=== PATIENT | male | born 1985 | race Caucasian/White ===

== ENCOUNTER 2022-03-30 04:16 | Emergency (ER) | payer BC ==
[~2022-03-30] VITALS: Ht 177.8 cm; Wt 90.6 kg
[~2022-03-30 04:16] MED LIST changes: -HOLTER MONITOR XX; -KEPP1TAB2 PO
[2022-03-30] MEDS ORDERED: NS 1,000 ML IV ONE (04:25)
[2022-03-30 04:43] LABS: BASO # 0.1 10^3/uL (0.0-0.2); BASO % 0.7 % (0.0-1.0); EOS # 0.1 10^3/uL (0.0-0.5); EOS % 1.7 % (0.0-3.0); HEMATOCRIT 45.6 % (42.0-52.0); HEMOGLOBIN 14.9 g/dl (13.5-17.5); LYMPH # 1.5 10^3/uL (1.5-5.0); LYMPH % 17.9 % (24.0-44.0); MEAN CORPUSCULAR HEMOGLOBIN 28.6 pg (27.0-33.0); MEAN CORPUSCULAR HGB CONC 32.7 g/dl (32.0-36.5); MEAN CORPUSCULAR VOLUME 87.5 fl (80.0-96.0); MONO # 0.5 10^3/uL (0.0-0.8); MONO % 5.5 % (2.0-8.0); NEUTROPHILS % 73.5 % (36.0-66.0); PLATELET COUNT, AUTOMATED 258 10^3/uL (150-450); RED BLOOD COUNT 5.21 10^6/uL (4.30-6.10); WHITE BLOOD COUNT 8.1 10^3/uL (4.0-10.0)
[2022-03-30 06:01] LABS: ALBUMIN 3.9 GM/DL (3.2-5.2); ALT/SGPT 30 U/L (12-78); BILIRUBIN,TOTAL 0.3 MG/DL (0.2-1.0); BLOOD UREA NITROGEN 17 MG/DL (7-18); CALCIUM LEVEL 9.3 MG/DL (8.5-10.1); CARBON DIOXIDE LEVEL 25 MEQ/L (21-32); CHLORIDE LEVEL 105 MEQ/L (98-107); CREATININE FOR GFR 1.04 MG/DL (0.70-1.30); GLOMERULAR FILTRATION RATE > 60.0 (>60); GLUCOSE, FASTING 164 MG/DL (70-100); MAGNESIUM LEVEL 2.2 MG/DL (1.8-2.4); POTASSIUM SERUM 4.1 MEQ/L (3.5-5.1); SODIUM LEVEL 138 MEQ/L (136-145); TOTAL PROTEIN 7.5 GM/DL (6.4-8.2)
[2022-03-30] MEDS ORDERED: levETIRAcetam INJection 1,500 MG in D5W 100 ML IV ONE (07:00)
[2022-03-30] MEDS ORDERED: KEPP1TAB2 PO (07:03)
[2022-03-30 07:15] VITALS: BP 141/83
[2022-03-30] MEDS ORDERED: HOLTER MONITOR XX (07:20)
== END 2022-03-30 07:45 | disposition home or self-care (01) ==
LOC: EDBD 04:16 → M ED 04:16
DX: R56.9 Unspecified convulsions (principal); R91.8 Other nonspecific abnormal finding of lung field; Z88.5 Allergy status to narcotic agent
CPT/HCPCS: 70450; 71045; 80053; 82550; 83735; 84443; 85025; 87486; 87581; 87633; 87798; 93005; 96361; 96365; 99284; J1953

== ENCOUNTER → 2022-03-30 | Outpatient (CLI) | payer BC ==
[~2022-03-30] MED LIST: HOLTER MONITOR XX; KEPP1TAB2 PO; No Historical Meds
== END ==
LOC: M EKG 08:05
PROVIDERS: ATTEND Emergency Medicine
DX: R00.2 Palpitations (principal)

== ENCOUNTER → 2022-04-06 | Outpatient (REF) | payer BC ==
[~2022-04-06] MED LIST changes: +HOLTER MONITOR XX; +KEPP1TAB2 PO
[2022-04-06 16:38] LABS: APPEARANCE, URINE MANUAL CLEAR (CLEAR); BILIRUBIN, URINE MANUAL NEGATIVE (NEGATIVE); BLOOD URINE MANUAL NEGATIVE (NEGATIVE); COLOR, URINE MANUAL YELLOW (YELLOW); GLUCOSE, URINE (UA) MANUAL NEGATIVE (NEGATIVE); KETONE, URINE MANUAL NEGATIVE (NEGATIVE); LEUKOCYTE ESTERASE, URINE MAN NEGATIVE (NEGATIVE); NITRITE, URINE MANUAL NEGATIVE (NEGATIVE); PROTEIN, URINE MANUAL NEGATIVE (NEGATIVE); UROBILINOGEN, URINE MANUAL NORMAL (NORMAL)
[2022-04-06 19:03] LABS: HEMOGLOBIN A1c 5.5 % (4.0-6.0)
[2022-04-06 19:47] LABS: ALBUMIN 4.5 G/DL (3.2-5.2); ALT/SGPT 12 U/L (7.0-40); BILIRUBIN,TOTAL 0.4 MG/DL (0.3-1.2); BLOOD UREA NITROGEN 18 MG/DL (9-23); CALCIUM LEVEL 9.5 MG/DL (8.5-10.1); CARBON DIOXIDE LEVEL 28 MMOL/L (20-31); CHLORIDE LEVEL 103 MMOL/L (98-107); CHOLESTEROL LEVEL 244 MG/DL (<200); CHOLESTEROL RISK RATIO 5.72 (<5); CREATININE FOR GFR 0.98 MG/DL (0.70-1.30); GLOMERULAR FILTRATION RATE > 60.0 (>60); GLUCOSE, FASTING 82 MG/DL (60-100); HDL CHOLESTEROL 42.6 MG/DL (>40); LDL CHOLESTEROL 170.2 MG/DL (<100); NON-HDL-C 201 MG/DL; POTASSIUM SERUM 4.8 MMOL/L (3.5-5.1); SODIUM LEVEL 140 MMOL/L (136-145); TOTAL PROTEIN 7.3 G/DL; TRIGLYCERIDES LEVEL 156 MG/DL (<150)
== END ==
LOC: M LAB REF 11:46
PROVIDERS: ATTEND Nurse Practitioner Family
DX: Z00.00 Encounter for general adult medical examination without abnormal findings (principal)

== ENCOUNTER → 2022-06-01 | Outpatient (CLI) | payer BC | LOC: M RAD 16:05 | PROVIDERS: ATTEND Internal Medicine Pulmonary Disease | DX: R91.8 Other nonspecific abnormal finding of lung field (principal) ==

== ENCOUNTER → 2022-09-01 | Outpatient (REF) | payer BC ==
[2022-09-01 17:53] LABS: ALBUMIN 3.9 G/DL (3.2-5.2); ALKALINE PHOSPHATASE 64 U/L (46-116); ALT/SGPT < 9 U/L (7.0-40); AST/SGOT 12 U/L (<34); BILIRUBIN,TOTAL 0.3 MG/DL (0.3-1.2); BLOOD UREA NITROGEN 19 MG/DL (9-23); CARBON DIOXIDE LEVEL 29 MMOL/L (20-31); CHLORIDE LEVEL 104 MMOL/L (98-107); CHOLESTEROL LEVEL 228 MG/DL (<200); CHOLESTEROL RISK RATIO 5.27 (<5); CREATININE FOR GFR 1.01 MG/DL (0.70-1.30); GLOMERULAR FILTRATION RATE > 60.0 (>60); GLUCOSE, FASTING 83 MG/DL (60-100); HDL CHOLESTEROL 43.2 MG/DL (>40); LDL CHOLESTEROL 135.6 MG/DL (<100); MAGNESIUM LEVEL 1.7 MG/DL (1.8-2.4); NON-HDL-C 184.8 MG/DL; POTASSIUM SERUM 4.2 MMOL/L (3.5-5.1); SODIUM LEVEL 139 MMOL/L (136-145); THYROID STIMULATING HORMONE 1.833 uIU/ML (0.55-4.78); TOTAL PROTEIN 6.7 G/DL (5.7-8.2); TRIGLYCERIDES LEVEL 246 MG/DL (<150)
== END ==
LOC: M LAB REF 16:18
PROVIDERS: ATTEND Nurse Practitioner Family
DX: R56.9 Unspecified convulsions (principal); R00.1 Bradycardia, unspecified; E78.2 Mixed hyperlipidemia

== ENCOUNTER → 2022-09-19 | Outpatient (REF) | LOC: M LABCAHC 10:17 | DX: Z79.899 Other long term (current) drug therapy (principal) ==

== ENCOUNTER 2022-11-12 13:44 | Emergency (ER) | payer BC ==
[~2022-11-12] VITALS: Ht 175.3 cm; Wt 88.1 kg
[2022-11-12] MEDS ORDERED: DEPA500T2 PO (14:05)
[2022-11-12 14:42] LABS: BASO # 0.1 10^3/uL (0.0-0.2); BASO % 0.6 % (0.0-1.0); EOS % 0.2 % (0.0-3.0); HEMATOCRIT 43.1 % (42.0-52.0); HEMOGLOBIN 14.2 g/dl (13.5-17.5); LYMPH # 1.5 10^3/uL (1.5-5.0); LYMPH % 18.9 % (24.0-44.0); MEAN CORPUSCULAR HGB CONC 32.9 g/dl (32.0-36.5); MEAN CORPUSCULAR VOLUME 88.1 fl (80.0-96.0); MONO # 0.6 10^3/uL (0.0-0.8); MONO % 6.9 % (2.0-8.0); NEUTROPHILS # 5.9 10^3/uL (1.5-8.5); PLATELET COUNT, AUTOMATED 247 10^3/uL (150-450); RED BLOOD COUNT 4.89 10^6/uL (4.30-6.10); WHITE BLOOD COUNT 8.1 10^3/uL (4.0-10.0)
[2022-11-12 15:11] LABS: ETHYL ALCOHOL (ETHANOL) < 0.003 % (0.000-0.010); VALPROIC ACID (DEPAKOTE) 71.3 UG/ML (50.0-100.0)
[2022-11-12] MEDS ORDERED: LORazepam 2 MG/ML 1ML VIAL IV STA (15:11)
[2022-11-12 15:13] LABS: ALBUMIN 4.5 G/DL (3.2-5.2); ALKALINE PHOSPHATASE 66 U/L (46-116); ALT/SGPT < 9 U/L (7.0-40); AST/SGOT 9 U/L (<34); BILIRUBIN,DIRECT 0.2 MG/DL (<0.4); BILIRUBIN,TOTAL 0.7 MG/DL (0.3-1.2); BLOOD UREA NITROGEN 19 MG/DL (9-23); CALCIUM LEVEL 10.2 MG/DL (8.5-10.1); CARBON DIOXIDE LEVEL 25 MMOL/L (20-31); CHLORIDE LEVEL 104 MMOL/L (98-107); CREATININE FOR GFR 0.95 MG/DL (0.70-1.30); GLOMERULAR FILTRATION RATE > 60.0 (>60); GLUCOSE, FASTING 99 MG/DL (60-100); MAGNESIUM LEVEL 1.8 MG/DL (1.8-2.4); PHOSPHORUS LEVEL 1.9 MG/DL (2.5-4.9); POTASSIUM SERUM 3.8 MMOL/L (3.5-5.1); SODIUM LEVEL 137 MMOL/L (136-145); TOTAL PROTEIN 7.4 G/DL (5.7-8.2)
[2022-11-12] MEDS ORDERED: VALPROATE SOD INJ 500 MG in D5W 50 ML IV ONE (15:15)
[2022-11-12] MEDS ORDERED: POTASSIUM PHOSPHATE INJ 20 MMOL in D5W 250 ML IV ONE (16:05)
[2022-11-12] MEDS ORDERED: KEPP1TAB PO (18:17)
[2022-11-12] MEDS ORDERED: ATIV2TAB PO (18:17)
[2022-11-12 18:33] LABS: AMPHETAMINES LEVEL URINE NEGATIVE (NEGATIVE); BARBITURATES URINE NEGATIVE (NEGATIVE); BENZODIAZEPINES URINE NEGATIVE (NEGATIVE); COCAINE METABOLITE URINE NEGATIVE (NEGATIVE)
[2022-11-12 18:34] LABS: METHADONE URINE NEGATIVE (NEGATIVE); OPIATES URINE NEGATIVE (NEGATIVE); PHENCYCLIDINE URINE NEGATIVE (NEGATIVE)
[2022-11-12 18:37] LABS: CANNABINOIDS URINE POSITIVE (NEGATIVE)
[2022-11-12 20:00] VITALS: TEMP 97.5
[2022-11-12 20:45] VITALS: BP 124/75; O2SAT 98
== END 2022-11-12 23:00 | disposition home or self-care (01) ==
LOC: M ED 13:44
DX: R56.9 Unspecified convulsions (principal); Z95.0 Presence of cardiac pacemaker; Z88.5 Allergy status to narcotic agent; Z79.899 Other long term (current) drug therapy
CPT/HCPCS: 70450; 80048; 80076; 80164; 80165; 80307; 82077; 83605; 83735; 84100; 85025; 93041; 94760; 96365; 96366; 96367; 96375; 99285; J2060

== ENCOUNTER → 2022-12-23 | Outpatient (REF) | payer BC ==
[~2022-12-23] MED LIST changes: +ATIV2TAB PO; +DEPA500T2 PO; +KEPP1TAB PO
[2022-12-23 18:47] LABS: TOTAL 25(OH) VITAMIN D 32.2 NG/ML (20.0-100.0)
[2022-12-24 09:53] LABS: MAGNESIUM LEVEL 1.9 MG/DL (1.8-2.4)
== END ==
LOC: M LAB REF 16:51
PROVIDERS: ATTEND Nurse Practitioner Family
DX: E55.9 Vitamin D deficiency, unspecified (principal)

== ENCOUNTER → 2022-12-31 | Outpatient (CLI) | payer BC ==
[~2022-12-31] MED LIST changes: +GASTROGRAFIN SOLUTION 30ML As Ordered ONE; +ISOVUE-370 76% 100ML VIAL As Ordered ONE
== END ==
LOC: M RAD 11:36
PROVIDERS: ATTEND Psychiatry & Neurology Neurology
DX: G40.802 Other epilepsy, not intractable, without status epilepticus (principal); Z12.89 Encounter for screening for malignant neoplasm of other sites
CPT/HCPCS: 74178; Q9963; Q9967

== ENCOUNTER → 2023-02-10 | Outpatient (CLI) | payer BC ==
[~2023-02-10] MED LIST changes: -GASTROGRAFIN SOLUTION 30ML As Ordered ONE; -ISOVUE-370 76% 100ML VIAL As Ordered ONE
[2023-02-10 09:09] LABS: ALBUMIN 3.8 G/DL (3.2-5.2); ALKALINE PHOSPHATASE 54 U/L (46-116); ALT/SGPT 25 U/L (7.0-40); AST/SGOT 23 U/L (<34); BILIRUBIN,TOTAL 0.6 MG/DL (0.3-1.2); BLOOD UREA NITROGEN 21 MG/DL (9-23); CALCIUM LEVEL 9.3 MG/DL (8.5-10.1); CARBON DIOXIDE LEVEL 31 MMOL/L (20-31); CHLORIDE LEVEL 106 MMOL/L (98-107); GLOMERULAR FILTRATION RATE > 60.0 (>60); GLUCOSE, FASTING 96 MG/DL (60-100); POTASSIUM SERUM 4.5 MMOL/L (3.5-5.1); SODIUM LEVEL 140 MMOL/L (136-145); TOTAL PROTEIN 6.9 G/DL (5.7-8.2)
[2023-02-10 09:10] LABS: FREE T4 1.36 NG/DL (0.89-1.76); THYROID STIMULATING HORMONE 1.015 uIU/ML (0.55-4.78); VITAMIN B12 LEVEL 821 PG/ML (211-911)
== END ==
LOC: M LAB 07:43
PROVIDERS: ATTEND Psychiatry & Neurology Neurology
DX: G40.802 Other epilepsy, not intractable, without status epilepticus (principal)

== ENCOUNTER 2023-06-04 16:53 | Emergency (ER) | payer BC, OTHER ==
[~2023-06-04] VITALS: Ht 177.8 cm; Wt 86.3 kg
[2023-06-04 17:06] VITALS: TEMP 97.8
[2023-06-04] MEDS ORDERED: LAMI1TAB9 PO (17:10)
[2023-06-04] MEDS ORDERED: LORazepam 2 MG/ML 1ML VIAL IV PRN (17:20)
[2023-06-04] MEDS ORDERED: lamoTRIgine 100MG TAB PO STA (18:03)
[2023-06-04] MEDS ORDERED: lamoTRIgine 25MG TAB PO ONE (18:10)
[2023-06-04] MEDS ORDERED: NS 1,000 ML IV ONE (18:20)
[2023-06-04 18:22] LABS: VALPROIC ACID (DEPAKOTE) < 3.0 UG/ML (50.0-100.0)
[2023-06-04 18:24] LABS: ALBUMIN 3.9 G/DL (3.2-5.2); ALKALINE PHOSPHATASE 66 U/L (46-116); ALT/SGPT 26 U/L (7.0-40); AST/SGOT 27 U/L (<34); BILIRUBIN,DIRECT 0.2 MG/DL (<0.4); BILIRUBIN,TOTAL 0.4 MG/DL (0.3-1.2); BLOOD UREA NITROGEN 13 MG/DL (9-23); CALCIUM LEVEL 9.1 MG/DL (8.5-10.1); CARBON DIOXIDE LEVEL 23 MMOL/L (20-31); CHLORIDE LEVEL 105 MMOL/L (98-107); CREATININE FOR GFR 0.92 MG/DL (0.70-1.30); GLOMERULAR FILTRATION RATE > 60.0 (>60); GLUCOSE, FASTING 107 MG/DL (60-100); MAGNESIUM LEVEL 2.1 MG/DL (1.8-2.4); POTASSIUM SERUM 4.6 MMOL/L (3.5-5.1); SODIUM LEVEL 137 MMOL/L (136-145); TOTAL PROTEIN 6.9 G/DL (5.7-8.2)
[2023-06-04 18:30] LABS: RSV AMPLIFICATION NEGATIVE (NEGATIVE)
[2023-06-04 18:35] LABS: BASO % 0.3 % (0.0-1.0); EOS % 0.1 % (0.0-3.0); HEMATOCRIT 40.6 % (42.0-52.0); HEMOGLOBIN 13.7 g/dl (13.5-17.5); LYMPH % 8.6 % (24.0-44.0); MEAN CORPUSCULAR HEMOGLOBIN 30.4 pg (27.0-33.0); MEAN CORPUSCULAR HGB CONC 33.7 g/dl (32.0-36.5); MEAN CORPUSCULAR VOLUME 90.2 fl (80.0-96.0); MONO # 0.5 10^3/uL (0.0-0.8); MONO % 4.1 % (2.0-8.0); NEUTROPHILS # 10.1 10^3/uL (1.5-8.5); NEUTROPHILS % 86.3 % (36.0-66.0); PLATELET COUNT, AUTOMATED 256 10^3/uL (150-450); WHITE BLOOD COUNT 11.7 10^3/uL (4.0-10.0)
[2023-06-04] MEDS ORDERED: LAMI1TAB7 PO (20:43)
[2023-06-04 21:11] LABS: AMPHETAMINES LEVEL URINE NEGATIVE (NEGATIVE); BARBITURATES URINE NEGATIVE (NEGATIVE); BENZODIAZEPINES URINE NEGATIVE (NEGATIVE); COCAINE METABOLITE URINE NEGATIVE (NEGATIVE); METHADONE URINE NEGATIVE (NEGATIVE); OPIATES URINE NEGATIVE (NEGATIVE); PHENCYCLIDINE URINE NEGATIVE (NEGATIVE)
[2023-06-04 21:13] LABS: CANNABINOIDS URINE POSITIVE (NEGATIVE)
[2023-06-04 21:15] VITALS: BP 126/59; O2SAT 98
== END 2023-06-04 21:16 | disposition home or self-care (01) ==
LOC: M ED 16:53 → EDBD 16:53 → M ED 21:16
DX: G40.909 Epilepsy, unspecified, not intractable, without status epilepticus (principal); Z79.899 Other long term (current) drug therapy; Z88.5 Allergy status to narcotic agent
CPT/HCPCS: 80048; 80076; 80164; 80175; 80307; 83605; 83735; 85025; 87631; 93041; 94760; 96361; 96374; 99285; J2060

== ENCOUNTER → 2023-06-16 | Outpatient (CLI) | payer OTHER ==
[~2023-06-16] MED LIST changes: +LAMI1TAB7 PO; +LAMI1TAB9 PO
== END ==
LOC: M LAB 06:59
PROVIDERS: ATTEND Psychiatry & Neurology Neurology
DX: G40.802 Other epilepsy, not intractable, without status epilepticus (principal)

== ENCOUNTER → 2023-07-27 | Outpatient (CLI) | payer OTHER | LOC: M LAB 06:30 | PROVIDERS: ATTEND Psychiatry & Neurology Neurology | DX: G40.802 Other epilepsy, not intractable, without status epilepticus (principal) ==

== ENCOUNTER → 2023-08-24 | Outpatient (CLI) | payer OTHER | LOC: M SOG 10:37 | PROVIDERS: ATTEND Orthopaedic Surgery | DX: M25.531 Pain in right wrist (principal); M25.532 Pain in left wrist ==

== ENCOUNTER → 2023-09-16 | Outpatient (CLI) | payer OTHER | LOC: M LAB 15:39 | DX: G40.802 Other epilepsy, not intractable, without status epilepticus (principal) ==

== ENCOUNTER → 2023-09-16 | Outpatient (REF) | payer OTHER ==
[2023-09-16 16:59] LABS: BASO # 0.1 10^3/uL (0.0-0.2); EOS # 0.2 10^3/uL (0.0-0.5); EOS % 2.3 % (0.0-3.0); HEMOGLOBIN 14.6 g/dl (13.5-17.5); LYMPH # 2.3 10^3/uL (1.5-5.0); LYMPH % 33.6 % (24.0-44.0); MEAN CORPUSCULAR HEMOGLOBIN 28.9 pg (27.0-33.0); MEAN CORPUSCULAR HGB CONC 32.4 g/dl (32.0-36.5); MEAN CORPUSCULAR VOLUME 88.9 fl (80.0-96.0); MONO # 0.4 10^3/uL (0.0-0.8); MONO % 6.3 % (2.0-8.0); NEUTROPHILS # 3.9 10^3/uL (1.5-8.5); NEUTROPHILS % 56.4 % (36.0-66.0); PLATELET COUNT, AUTOMATED 249 10^3/uL (150-450); RED BLOOD COUNT 5.06 10^6/uL (4.30-6.10); WHITE BLOOD COUNT 6.9 10^3/uL (4.0-10.0)
[2023-09-16 17:28] LABS: CHOLESTEROL RISK RATIO 5.7 (<5); HDL CHOLESTEROL 43.1 MG/DL (>40); LDL CHOLESTEROL 171.9 MG/DL (<100); NON-HDL-C 202.9 MG/DL
== END ==
LOC: M LAB REF 16:25
PROVIDERS: ATTEND Nurse Practitioner Family
DX: E78.5 Hyperlipidemia, unspecified (principal); D72.829 Elevated white blood cell count, unspecified

== ENCOUNTER → 2024-03-12 | Outpatient (CLI) | payer OTHER ==
[2024-03-12 07:01] LABS: BASO # 0.1 10^3/uL (0.0-0.2); BASO % 1.3 % (0.0-1.0); EOS # 0.3 10^3/uL (0.0-0.5); EOS % 4.9 % (0.0-3.0); HEMATOCRIT 43.8 % (42.0-52.0); HEMOGLOBIN 14.4 g/dl (13.5-17.5); LYMPH # 2.1 10^3/uL (1.5-5.0); MEAN CORPUSCULAR HEMOGLOBIN 29.1 pg (27.0-33.0); MEAN CORPUSCULAR HGB CONC 32.9 g/dl (32.0-36.5); MEAN CORPUSCULAR VOLUME 88.5 fl (80.0-96.0); MONO # 0.4 10^3/uL (0.0-0.8); MONO % 6.6 % (2.0-8.0); NEUTROPHILS # 3.2 10^3/uL (1.5-8.5); NEUTROPHILS % 52.5 % (36.0-66.0); PLATELET COUNT, AUTOMATED 237 10^3/uL (150-450); RED BLOOD COUNT 4.95 10^6/uL (4.30-6.10); WHITE BLOOD COUNT 6.1 10^3/uL (4.0-10.0)
[2024-03-12 07:27] LABS: ALBUMIN 3.8 G/DL (3.2-5.2); ALKALINE PHOSPHATASE 94 U/L (46-116); ALT/SGPT 14 U/L (7.0-40); AST/SGOT 10 U/L (<34); BILIRUBIN,TOTAL 0.2 MG/DL (0.3-1.2); BLOOD UREA NITROGEN 15 MG/DL (9-23); CALCIUM LEVEL 9.2 MG/DL (8.5-10.1); CARBON DIOXIDE LEVEL 29 MMOL/L (20-31); CHLORIDE LEVEL 107 MMOL/L (98-107); CREATININE FOR GFR 0.97 MG/DL (0.70-1.30); GLOMERULAR FILTRATION RATE > 60.0 (>60); GLUCOSE, FASTING 109 MG/DL (60-100); SODIUM LEVEL 139 MMOL/L (136-145); TOTAL PROTEIN 6.8 G/DL (5.7-8.2)
== END ==
LOC: M LAB 06:39
PROVIDERS: ATTEND Psychiatry & Neurology Neurology
DX: G40.802 Other epilepsy, not intractable, without status epilepticus (principal)